=== PATIENT | male | born 1940 | race Caucasian/White ===

== ENCOUNTER 2018-06-01 11:52 | Day surgery (SDC) | payer MEDICARE, OTHER ==
[2018-06-01] MEDS ORDERED: Phenylephrine 2.5% Ophth Soln 5 ML BOT ONE (12:22)
== END 2018-06-01 13:15 | disposition home or self-care (01) ==
LOC: SDC 11:52
PROVIDERS: ATTEND Ophthalmology
PROC: 085K3ZZ Destruction of Left Lens, Percutaneous Approach (ICD-10-PCS; principal; 2018-06-01)
DX: H26.492 Other secondary cataract, left eye (principal); I10 Essential (primary) hypertension; Z79.82 Long term (current) use of aspirin; Z79.899 Other long term (current) drug therapy

== ENCOUNTER 2018-12-30 17:07 | Emergency (ER) | payer MEDICARE, OTHER | END 2018-12-30 17:29 | disposition left against medical advice (07) | LOC: ERS 17:07 | DX: Z53.21 Procedure and treatment not carried out due to patient leaving prior to being seen by health care provider (principal) ==

== ENCOUNTER 2023-07-05 10:01 | Outpatient (CLI) | payer MEDICARE, OTHER | END 2023-07-05 10:02 | disposition home or self-care (01) | LOC: BICMAMMO 10:01 | PROVIDERS: ATTEND Internal Medicine Rheumatology | DX: M81.0 Age-related osteoporosis without current pathological fracture (principal) | CPT/HCPCS: 77080 ==

== ENCOUNTER 2023-10-11 08:07 | Emergency (ER) | payer MEDICARE, OTHER | END 2023-10-11 10:13 | disposition home or self-care (01) | LOC: ERS 08:07 | DX: M16.0 Bilateral primary osteoarthritis of hip (principal); M54.50 Low back pain, unspecified | CPT/HCPCS: 72100; 72170 ==